=== PATIENT | male | born 2000 | race Caucasian/White ===

== ENCOUNTER 2021-11-11 21:17 | Emergency (ER) | payer SELFPAY ==
[2021-11-11] MEDS ORDERED: Fluorescein Opthalmic Strip ONE (21:33)
[2021-11-11] MEDS ORDERED: Tetracaine 0.5% PF 4 ML BOT ONE (21:33)
== END 2021-11-11 22:20 | disposition home or self-care (01) ==
LOC: MADERS 21:17
DX: H16.133 Photokeratitis, bilateral (principal); F17.210 Nicotine dependence, cigarettes, uncomplicated
CPT/HCPCS: 99283